=== PATIENT | male | born 1995 | race Caucasian/White ===

== ENCOUNTER 2017-07-29 08:20 | Emergency (ER) | payer SELFPAY ==
[~2017-07-29] VITALS: Ht 162.6 cm; Wt 95.3 kg
[~2017-07-29 08:20] MED LIST: IBUPROFEN600 MG PO; KEFLEX500 MG PO
[2017-07-29 09:22] LABS: EOSINOPHIL (%) 1.1 % (0-5); EOSINOPHIL COUNT 0.1 K/uL (0-0.3); HEMATOCRIT 45.6 % (38.0-50.0); IMMATURE GRANULOCYTE (%) 0.2 % (0.0-0.7); INSTRUMENT ABS NEUTROPHIL CT 5.7 K/uL; LYMPHOCYTE COUNT 2.3 K/uL (1.0-2.8); MCH 29.4 PG (29.0-34.0); MCHC 34.6 G/DL (30.0-36.0); MCV 84.9 FL (86-99); MEAN PLAT.VOLUME 11.3 uM^3 (9.0-12.4); MONOCYTE (%) 10.3 % (3-12); MONOCYTE COUNT 0.9 K/uL (0-0.8); NEUTROPHIL (%) 63.1 % (45-76); NEUTROPHIL COUNT 5.7 K/uL (1.8-6.4); PLATELET COUNT 201 K/uL (156-360); RED BLOOD COUNT 5.37 M/uL (4.00-5.50)
[2017-07-29 09:31] LABS: D-DIMER ELISA < 150.00 ng/mLDDU (<230)
[2017-07-29 09:35] LABS: CHLORIDE 103 mEq/L (99-109); POTASSIUM 4.2 mEq/L (3.7-5.4); SODIUM 141 mEq/L (136-147)
[2017-07-29 09:37] LABS: GLUCOSE 104 mg/dL (70-99)
[2017-07-29 09:39] LABS: ANION GAP 11 MEQ/L (2-14); TOTAL BILIRUBIN 0.4 mg/dL (0.0-1.0)
[2017-07-29 09:41] LABS: ALKALINE PHOSPHATASE 70 IU/L (3-129); GFR ESTIMATE (CALCULATED) > 59 mL/min/ (58.99-99999)
[2017-07-29 09:42] LABS: UREA NITROGEN (BUN) 18 mg/dL (9-23)
[2017-07-29 09:44] LABS: LIPASE 5 U/L (1.0-51.0)
[2017-07-29 09:45] LABS: TROP-I INTERPRETATION NEGATIVE; TROPONIN-I < 0.01 ng/mL (0.0-0.30)
[2017-07-29] MEDS ORDERED: PERCOCET 5/31 TABLET PO (11:49)
[2017-07-29] MEDS ORDERED: ZOFRAN4 MG PO (11:51)
[2017-07-29] MEDS ORDERED: LISINOPRIL10 MG PO ×2 (11:59→12:09)
[2017-07-29 12:21] VITALS: BP 161/90
== END 2017-07-29 12:27 | disposition home or self-care (01) ==
LOC: EME 08:20
PROVIDERS: Emergency Medicine
DX: K80.20 Calculus of gallbladder without cholecystitis without obstruction (principal); I10 Essential (primary) hypertension; Z91.14 Patient's other noncompliance with medication regimen; R07.89 Other chest pain
CPT/HCPCS: 71010; 76705; 80053; 83690; 84484; 85025; 85379; 93005; 99281; 99284; J2270